=== PATIENT | male | born 1995 | race Caucasian/White ===

== ENCOUNTER 2022-10-20 13:16 | Emergency (ER) | payer BC, OTHER ==
[~2022-10-20] VITALS: Ht 177.8 cm; Wt 68.0 kg
== END 2022-10-20 16:44 | disposition home or self-care (01) ==
LOC: ED 13:16
DX: S63.502A Unspecified sprain of left wrist, initial encounter (principal); W10.8XXA Fall (on) (from) other stairs and steps, initial encounter; Y93.89 Activity, other specified; Y92.89 Other specified places as the place of occurrence of the external cause; Y99.8 Other external cause status

== ENCOUNTER → 2022-11-16 | Outpatient (CLI) | payer BC, OTHER | END | disposition home or self-care (01) | LOC: RAD 13:23 | PROVIDERS: ATTEND Nurse Practitioner | DX: M25.562 Pain in left knee (principal) ==

== ENCOUNTER → 2022-12-06 | Outpatient (CLI) | payer BC, OTHER | END | disposition home or self-care (01) | LOC: RAD 11:18 | PROVIDERS: ATTEND Nurse Practitioner | DX: M25.562 Pain in left knee (principal) ==

== ENCOUNTER 2023-02-03 04:12 | Emergency (ER) | payer BC, OTHER ==
[~2023-02-03] VITALS: Ht 177.8 cm; Wt 68.0 kg
[2023-02-03 05:18] LABS: ALKALINE PHOSPHATASE 98 U/L (46-116); BUN 7 mg/dl (9-23); CHLORIDE 104 mmol/L (98-107); POTASSIUM 3.9 mmol/L (3.4-5.1); SGPT/ALT 14 U/L (5-49); TOTAL PROTEIN 8.1 gm/dL (6.0-8.0)
[2023-02-03 06:04] LABS: HEMATOCRIT 41.4 % (42.0-52.0); MEAN CELL VOLUME 92.6 fl (80.0-94.0); MEAN CORPUSCULAR HGB 31.8 pg (27.0-31.0); MEAN CORPUSCULAR HGB CONC 34.3 g/dl (33.0-37.0); MEAN PLATELET VOLUME 10.4 fl (9.6-12.3); PLATELET COUNT AUTOMATED 260 10*3/uL (130-400); RED BLOOD COUNT 4.47 10*6/uL (4.50-5.90); RED CELL DISTRI WIDTH 12.9 % (0-14.5); WHITE BLOOD COUNT 17.6 10*3/uL (4.8-10.8)
[2023-02-03 06:05] LABS: MANUAL DIFF REFLEX YES
[2023-02-03 06:59] LABS: TOTAL CELLS COUNTED 100 #CELLS
[2023-02-03 07:00] LABS: PLATELET SUFFICIENCY NORMAL (NORMAL)
[2023-02-03] MEDS ORDERED: MELOXICAM15 MG PO (07:35)
[2023-02-03] MEDS ORDERED: NICODERM CQ1 EAC2 TD (07:35)
[2023-02-03] MEDS ORDERED: VIBRAMYCIN100 MG PO (07:35)
== END 2023-02-03 07:40 | disposition home or self-care (01) ==
LOC: ED 04:12
PROVIDERS: Family Medicine
DX: R07.89 Other chest pain (principal); J40 Bronchitis, not specified as acute or chronic; Z88.0 Allergy status to penicillin; Z88.2 Allergy status to sulfonamides; Z88.1 Allergy status to other antibiotic agents; Z88.8 Allergy status to other drugs, medicaments and biological substances; Z20.822 Contact with and (suspected) exposure to COVID-19

== ENCOUNTER 2023-04-08 21:03 | Emergency (ER) | payer MEDICAID ==
[~2023-04-08] VITALS: Ht 177.8 cm; Wt 72.6 kg
[~2023-04-08 21:03] MED LIST: MELOXICAM15 MG PO; NICODERM CQ1 EAC2 TD; VIBRAMYCIN100 MG PO
== END 2023-04-08 22:03 | disposition home or self-care (01) ==
LOC: ED 21:03
DX: N50.812 Left testicular pain (principal); N50.9 Disorder of male genital organs, unspecified; F17.200 Nicotine dependence, unspecified, uncomplicated; Z88.0 Allergy status to penicillin; Z88.2 Allergy status to sulfonamides; Z88.1 Allergy status to other antibiotic agents; Z88.8 Allergy status to other drugs, medicaments and biological substances